=== PATIENT | male | born 1995 | race Caucasian/White ===

== ENCOUNTER 2018-08-05 11:53 | Emergency (ER) ==
[2018-08-05 11:59] VITALS: BP 151/84; TEMP 97.8; BMI 32.4
[2018-08-05] MEDS ORDERED: ASPIRIN CHEWABLE PO STA (12:06)
--- NOTE | 2018-08-05 13:57 | CT ---
EXAM: CTA CHEST (PE PROTOCOL) HISTORY: Pleuritic chest pain TECHNIQUE: CTA chest with intravenous contrast. Multiplanar images were provided with 3-D reconstru ctions. 100 mL Omnipaque. COMPARISON: None FINDINGS: No pulmonary arterial filling defect. Normal heart size. No pericardial effusion or mediastinal lym phadenopathy. Thoracic aorta is within normal limits. Lung targeted images are limited by low lung volumes and respiratory motion. There are no consolidat ions identified. No definite acute infiltrates. There is no vascular congestion, pneumothorax or pl eural fluid. The bones reveal mild scoliosis. IMPRESSION: 1. No pulmonary arterial thromboemboli. 2. No convincing evidence of acute infiltrates. 3. Mild scoliosis.
[2018-08-05] MEDS ORDERED: SODIUM CHLORIDE 1,000 ML IV STA (14:25)
--- NOTE | 2018-08-05 18:25 | ED.PDOC ---
General ED Provider: Dr. AURELIANO CARDENAS Chief Complaint: Chest Pain Stated Complaint: chest pain Time Seen by Physician: 12:00 Mode of Arrival: Walk-In Information Source: Patient Exam Limitations: No limitations Nursing and Triage Documentation Reviewed and Agree: Yes Does patient meet sepsis criteria?: No System Inflammatory Response Syndrome: Not Applicable Sepsis Protocol: For patient's 13 years and over: Temp is 96.8 and below OR 101 and greater Pulse >90 BPM Resp >20/minute Acutely Altered Mental Status Are patient's symptoms suggestive of a new infection, such as: -Pneumonia -Skin, Soft Tissue -Endocarditis -UTI -Bone, Joint Infection -Implantable Device -Acute Abdominal Infection -Wound Infection -Meningitis -Blood Stream Catheter Infection -Unknown Cardiovascular Complaint Exam - Chest Pain Complaint/Exam Onset: Gradual Duration: 10 min Symptoms Are: Resolved Length of Chest Pain Episodes: 10min Initial Severity: Moderate Current Severity: None Location: Reports: Midsternal Pain Radiates: Reports: None Character: Reports: Tightness Aggravating: Reports: None Alleviating: Reports: Spontaneous resolution Associated Signs and Symptoms: Denies: Diaphoresis, Nausea, Vomiting, Fever, Palpitations, Cough, Hemoptysis, Back pain, Abdominal pain, Dizziness, Short of air, Calf pain, Calf swelling Related Surgical History: Reports: None History of Healthcare-Acquired Pneumonia: Reports: No AMI/ACS Risk Factors: Reports: None TAD Risk Factors: Reports: None Pulmonary Embolism Risk Factors: Reports: None Prior Care for this Complaint: No Recent Stress Test: No Recent Echo/LV Function: No JVD Present: No Subcutaneous Emphysema Present: No Diminshed Breath Sounds: No Reproducible Chest Wall Pain: No Bilateral Pulses Present: No Unequal Pulses Noted: No If Risk Factors for AMI/ACS Consider: EKG, Cardiac Enzymes Differential Diagnoses: GI Diseasae Review of Systems - Review Of Systems Constitutional: Reports: No symptoms Eyes: Reports: No symptoms Ears, Nose, Mouth, Throat: Reports: No symptoms Respiratory: Reports: No symptoms Cardiac: Reports: Chest pain GI: Reports: No symptoms : Reports: No symptoms Musculoskeletal: Reports: No symptoms Skin: Reports: No symptoms Neurological: Reports: No symptoms Endocrine: Reports: No symptoms Hematologic/Lymphatic: Reports: No symptoms All Other Systems: Reviewed and Negative Past Medical History - Past Medical History Previously Healthy: Yes Endocrine: Reports: None Cardiovascular: Reports: None Respiratory: Reports: None Hematological: Reports: None Gastrointestinal: Reports: None Genitourinary: Reports: None Neuro/Psych: Reports: None Musculoskeletal: Reports: None Cancer: Reports: None - Surgical History General Surgical History: Reports: None - Family History Family History: Reports: None - Social History Smoking Status: Never smoker Hx Substance Use: No Alcohol Screening: Occasionally Physical Exam - Physical Exam Appearance: Well-appearing, No pain distress, Well-nourished Eyes: [place], EOMI, Conjunctiva clear ENT: Ears normal, Nose normal, Oropharynx normal Respiratory: Airway patent, Breath sounds clear, Breath sounds equal, Respirations nonlabored Cardiovascular: RRR, Pulses normal, No rub, No murmur GI/: Soft, Nontender, No masses, Bowel sounds normal, No Organomegaly Musculoskeletal: Normal strength, ROM intact, No edema, No calf tenderness Skin: Warm, Dry, Normal color Neurological: Sensation intact, Motor intact, Reflexes intact, Cranial nerves intact, Alert, Oriented Psychiatric: Affect appropriate, Mood appropriate Interpretation - Radiology Interpretation Radiology Interpretation By: Radiologist Radiology Results: No acute changes - Market Director Rate: Normal Rhythm: Sinus Ectopy: None - EKG Interpretation Rate: Normal Rhythm: Sinus Re-Evaluation - Re-Evaluation Time of Re-Evaluation: 13:00 Status: Improved Vital Signs Stable: Yes Pain Level: 0 Appearance: NAD Lungs: Clear Skin: Warm and Dry Neuro: Alert and Oriented X3 CV: RRR Additional Comments: pt was checked hourly until 6 pm remained pain free - Re-Evaluation Time of Re-Evaluation: 18:28 (no pain) Status: Unchanged Vital Signs Stable: Yes Pain Level: 0 Appearance: NAD Skin: Warm and Dry Neuro: Alert and Oriented X3 CV: RRR Critical Care Note - Critical Care Note Total Time (mins): 0 Course - Course Hematology/Chemistry: 08/05/18 12:15 08/05/18 12:15 Orders, Labs, Meds: Lab Review 08/05/18 08/05/18 08/05/18 12:15 12:15 13:32 WBC 7.99 RBC 6.32 H Hgb 17.4 Hct 51.1 MCV 80.9 MCH 27.5 MCHC 34.1 RDW Coeff of [place] 12.4 Plt Count 225 Immature Gran % (Auto) 0.1 Neut % (Auto) 50.6 Lymph % (Auto) 41.9 Rice % (Auto) 4.4 Eos % (Auto) 2.5 Baso % (Auto) 0.5 Immature Gran # (Auto) 0.0 Neut # (Auto) 4.0 Lymph # (Auto) 3.4 Rice # (Auto) 0.4 Eos # (Auto) 0.2 Baso # (Auto) 0.0 Sodium 138.8 Potassium 3.72 Chloride 103.8 Carbon Dioxide 20.8 L Anion Gap 17.92 BUN 24.2 H Creatinine 1.39 H Estimated GFR (MDRD) 62.00 BUN/Creatinine Ratio 17.41 Glucose 98.9 Calcium 9.88 Total Bilirubin 2.01 H AST 29.3 ALT 42.5 Alkaline Phosphatase 60.2 Total Creatine Kinase 65.7 Troponin I < 0.012 Total Protein 8.18 Albumin 5.43 H Globulin 2.75 Albumin/Globulin Ratio 1.97 Urine Opiates Screen Negative Ur Oxycodone Screen Negative Urine Methadone Screen Negative Ur Propoxyphene Screen Negative Ur Barbiturates Screen Negative U Tricyclic Antidepress Negative Ur Phencyclidine Scrn Negative Ur Amphetamine Screen Negative U Methamphetamines Scrn Negative U Benzodiazepines Scrn Negative Urine Cocaine Screen Negative U Cannabinoids Screen Negative Orders Category Date Time Status EKG-(ED ONLY) Stat CARDIO 08/05/18 12:05 Completed EKG-(ED ONLY) Stat CARDIO 08/05/18 14:25 Completed EKG-(ED ONLY) Stat CARDIO 08/05/18 18:24 Ordered NPO REMINDER: IMAGING ONCE CARE 08/05/18 12:06 Completed ED IV/MEDIPORT/POWERPORT .ONCE EMERGENCY 08/05/18 12:05 Active CBC W/ AUTO DIFF Stat LAB 08/05/18 12:15 Completed COMPREHENSIVE METABOLIC PANEL Stat LAB 08/05/18 12:15 Completed CPK [CREATINE KINASE] Stat LAB 08/05/18 18:22 Ordered CREATINE KINASE Stat LAB 08/05/18 12:15 Completed CREATINE KINASE Stat LAB 08/05/18 18:24 Ordered DRUG SCREEN (RAPID FOR ED) [DRUG SCREEN, URINE, RAPID] LAB 08/05/18 13:32 Completed Stat TROPONIN I Stat LAB 08/05/18 12:15 Completed TROPONIN I Stat LAB 08/05/18 18:22 Ordered TROPONIN I Stat LAB 08/05/18 18:24 Ordered 0.9 % Sodium Chloride [Saline Flush] MEDS 08/05/18 12:05 Active 1 syr IVF PRN PRN Aspirin [Aspirin Chewable] MEDS 08/05/18 12:06 Discontinued 324 mg PO ONCE STA Sodium Chloride 0.9% [Sodium Chloride] 1,000 ml MEDS 08/05/18 14:[address] CHEST PE PROTOCOL Stat RADS 08/05/18 12:05 Completed Medications Generic Name Dose Route Start Last Admin Trade Name Freq PRN Reason Stop Dose Admin Sodium Chloride 1 syr 08/05/18 12:05 08/05/18 12:23 Saline Flush IVF 1 syr PRN PRN Administration To flush IV Discontinued Medications Generic Name Dose Route Start Last Admin Trade Name Freq PRN Reason Stop Dose Admin Aspirin 324 mg 08/05/18 12:06 08/05/18 12:19 Aspirin Chewable PO 08/05/18 12:07 324 mg ONCE STA Administration Sodium Chloride 1,000 mls @ 1,000 mls/hr 08/05/18 14:25 08/05/18 14:28 Sodium Chloride IV 08/05/18 15:24 1,000 mls/hr BOLUS STA Administration Vital Signs: Temp Pulse Resp BP Pulse Ox 08/05/18 11:53 97.8 F 85 20 151/84 H 99 CHARLY Risk Score CHARLY Risk Score: Risk Score Odds of by 30D 0 0.1 (0.1-0.2) 1 0.3 (0.2-0.3) 2 0.4 (0.3-0.5) 3 0.7 (0.6-0.9) 4 1.2 (1.0-1.5) 5 2.2 (1.9-2.6) 6 3.0 (2.5-3.6) 7 4.8 (3.8-6.1) Departure - Departure Time of Disposition: 19:00 Disposition: HOME SELF-CARE Discharge Problem: Chest pain Instructions: Chest Pain (ED) Condition: Good Pt referred to PMD for follow-up: Yes IPMP verified?: No Additional Instructions: Please call your Family Physician as soon as possible to schedule a follow-up appointment. Allergies/Adverse Reactions: Allergies No Known Allergies Allergy (Unverified 08/05/18 11:59) Home Medications: Ambulatory Orders 1 [No Reported Medications] 08/05/18
== END 2018-08-05 19:03 | disposition home or self-care (01) ==
LOC: ED 11:53
DX: R07.9 Chest pain, unspecified (principal)
CPT/HCPCS: 36415; 80053; 80306; 82550; 84484; 85025; 93005; 93010; 96360; 99283